=== PATIENT | male | born 1990 | race Caucasian/White ===

== ENCOUNTER 2018-06-05 15:26 | Emergency (ER) | payer MEDICAID ==
[2018-06-05] MEDS ORDERED: NS 1,000 ML IV ONE (15:57)
[2018-06-05 16:21] LABS: PLATELET COUNT 150 10^3/uL (150-400)
--- NOTE | 2018-06-05 17:43 | EDPHY ---
H & P Stated Complaint: abd cramps diarrhea/travel in [place] - Personal History Current Tetanus Diphtheria and Acellular Pertussis (TDAP): Yes - Medical/Surgical History Hx Asthma: No Hx Chronic Respiratory Disease: No Hx Diabetes: No Hx Cardiac Disease: No Hx Renal Disease: No Hx Cirrhosis: No Hx Alcoholism: No Hx HIV/AIDS: No Hx Splenectomy or Spleen Trauma: No Other PMH: denies - Social History Smoking Status: Never smoked Time Seen by Provider: 06/05/18 15:48 HPI/ROS: Chief complaint: Abdominal cramping and diarrhea History of present illness: This is a 27-year-old male who presents to the emergency department for evaluation of abdominal cramping and associated diarrhea. Patient has been traveling in [place] for the last few weeks. He returned at the end of last week. He states well in [place] he started developed the diarrhea. Multiple episodes daily described as watery. Associated abdominal cramping. He has been treating symptoms with Pepto-Bismol which helps but has not resolve the problem. He denies specific precipitating factors outside of travel to [place]. He denies associated signs or symptoms including no fevers, no current nausea or vomiting, he is urinating well. No recent antibiotic use. Review of systems: A 10 point review of systems was obtained and other than described above was negative (Hugo Amezquita) - Physical Exam Exam: General Appearance: Alert, no distress. Eyes: Pupils equal and round no pallor or injection. ENT, Mouth: Mucous membranes moist. Respiratory: There are no retractions, lungs are clear to auscultation. Cardiovascular: Regular rate and rhythm. Gastrointestinal: Abdomen is soft and non tender, no masses, bowel sounds normal. Neurological: Alert and oriented x4. Strength and sensation intact and symmetrical. Skin: Warm and dry, no rashes. Musculoskeletal: Neck is supple non tender. Extremities are symmetrical, full range of motion. Psychiatric: Patient is oriented X 3, there is no agitation. (Hugo Amezquita) Constitutional: Initial Vital Signs Temperature (C) 36.5 C 06/05/18 15:35 Heart Rate 63 06/05/18 15:35 Respiratory Rate 18 06/05/18 15:35 Blood Pressure 118/74 06/05/18 15:35 O2 Sat (%) 100 06/05/18 15:35 O2 Delivery Mode Room Air Allergies/Adverse Reactions: No Known Allergies Allergy (Unverified 06/05/18 15:35) Home Medications: Medication Instructions Recorded Ciprofloxacin [Cipro] 500 mg PO BID #6 tab 06/05/18 Medical Decision Making ED Course/Re-evaluation: Patient seen under the supervision of my secondary supervising physician Dr. Gretta Christina. Patient presents for evaluation of diarrhea with abdominal cramping. He is nontoxic. Vital signs are stable. Serial abdominal exams are benign. Blood studies are unremarkable. I have ordered stool studies, however he has not been able to have a bowel movement in the emergency department. I have discussed multiple options, he can go home with an order for stool studies and a stool kit and return here, he can follow-up with a primary care doctor or we can empirically treat him. He would like to be empirically treated. I will place him on Cipro. He is asked to follow up with a primary care doctor for further evaluation and care and referral information is provided. Return precautions are given. The patient voiced understanding and agreement with plan. (Hugo Amezquita) Differential Diagnosis: Included but not limited to traverse diarrhea, gastroenteritis, colitis (Hugo Amezquita) Other Provider: The patient was evaluated and managed by the Physician [employer] Product Owner. I discussed the patient's presentation and course with the physician video production assistant and agree with the evaluation. My co-signature indicates that I have reviewed this chart and I agree with the findings and plan of care as documented. I am the secondary supervising physician. (Gretta Christina) - Data Points Laboratory Results: Laboratory Results 06/05/18 16:12 06/05/18 16:12 Medications Given: Discontinued Medications Sodium Chloride (Ns) 1,000 mls @ 0 mls/hr IV EDNOW ONE; Wide Open PRN Reason: Protocol Stop: 06/05/18 15:58 Last Admin: 06/05/18 16:09 Dose: 1,000 mls Departure - Departure Disposition: Home, Routine, Self-Care Clinical Impression: Diarrhea Condition: Good Instructions: Traveler's Diarrhea (ED) Additional Instructions: Follow-up with a primary care doctor for continued evaluation and care If symptoms worsen or new symptoms develop return to the emergency room for recheck Referrals: MARQUISE RUBIO [Other] - As per Instructions [facility],. [Clinic] - As per Instructions Prescriptions: Ciprofloxacin [Cipro] 500 mg PO BID #6 tab
[2018-06-05 18:00] VITALS: BP 121/71
== END 2018-06-05 18:00 | disposition home or self-care (01) ==
DX: R19.7 Diarrhea, unspecified (principal); E86.9 Volume depletion, unspecified